=== PATIENT | male | born 1950 | race Caucasian/White ===

== ENCOUNTER 2022-09-09 22:47 | Observation (INO) ==
--- NOTE | 2022-09-09 23:21 | Emergency Department Note ---
History of Present Illness General Chief complaint: Urinary Symptoms Stated complaint: UTI/TROUBLE URINATING Time Seen by Provider: 09/09/22 22:55 History of Present Illness 71-year-old male presents emergency department via EMS reportedly states that he has been feeling feverish and fatigued for the past few days now. Patient went to [facility] urgent care and had a full evaluation for fatigue. Patient sta alyssa that he is Lyme negative he did have evaluation with blood work and had an elevated white blood cell count of 13.54 his urinalysis showed white blood cells and bacteria. Patient was placed on Macrobid. Patient had normal electrolytes. The patient continued to have fevers and generalized weakness. Patient had seen his primary care physician today [facility] is [facility] a dose of [facility]. Patient this evening felt worse. Patient states he is having pressure and inability to urinate at times with decreased urine output. Patient has no prior history of kidney stones however on his urinalysis he did have calcium oxalate crystals present. Patient continues to complain of general malaise and fever. Home Medications Medication Instructions Recorded Confirmed Type cholecalciferol (vitamin D3) 25 0 mcg PO DAILY 09/10/22 09/10/22 History mcg (1,000 unit) capsule (Vitamin D3) cyanocobalamin (vitamin B-12) 500 0 mcg PO DAILY 09/10/22 09/10/22 History mcg tablet (Vitamin B-12) docusate sodium 100 mg capsule 100 mg PO DAILY 09/10/22 09/10/22 History (Colace) doxycycline hyclate 50 mg capsule 50 mg PO DAILY PRN FLARE UPS 09/10/22 09/10/22 History ferrous sulfate 325 mg (65 mg 325 mg PO DAILY 09/10/22 09/10/22 History iron) tablet (iron) multivitamin 1 tab PO DAILY 09/10/22 09/10/22 History nitrofurantoin 100 mg PO BID 09/10/22 09/10/22 History monohydrate/macrocrystals 100 mg capsule Allergies Allergy/AdvReac Type Severity Reaction Status Date / Time bee venom protein (honey bee) Allergy Severe ANAPHYLAXIS Verified 09/10/22 00:20 Penicillins Allergy Severe ANAPHYLAXIS Verified 09/10/22 00:20 pollen extracts Allergy Mild SEASONAL Verified 09/10/22 00:20 ALLERGIES BLUE CHEESE Allergy Severe ANAPHYLAXIS Uncoded 09/10/22 00:20 Past Med/Surg History Immunizations: Past medical history denies, past surgical history left inguinal hernia repair, social history lives alone Review of Systems A total of 10 systems reviewed and were otherwise negative Constitutional: + fever, + malaise and + weakness Respiratory: no cough Cardiovascular: no chest pain Gastrointestinal: no abdominal pain Genitourinary (Male): + urinary frequency and + urinary hesitancy Physical Exam GENERAL: Patient is awake alert in no acute distress patient is resting comfortably and showing no signs of anxiety EYES: The conjunctivae are clear. The pupils are round and reactive. EARS, NOSE, MOUTH AND THROAT: The nose is without any evidence of any deformity. Mucous membranes are moist. Tongue is midline. NECK: The neck is nontender and supple. RESPIRATORY: Normal respiratory effort is noted there is no evidence of wheezing rhonchi or rales CARDIOVASCULAR: Regular rate and rhythm noted there no murmurs rubs or gallops n ormal S1 normal S2. GASTROINTESTINAL: The abdomen is soft. Abdomen is nontender. There is no rebou nd rigidity or guarding BACK: Full range of motion MUSCULOSKELETAL/EXTREMITIES: There is no evidence of gross deformity full range of motion is noted in the hips and shoulders. SKIN: There is no obvious evidence of any rash. There are no petechiae, pallor or cyanosis noted. NEUROLOGIC: Patient is awake alert and oriented x3 strength is symmetric Course Reevaluation(s) Reevaluation #1: Patient was started on IV fluids. Patient states he is continuously feeling weak. Patient states he cannot urinate. Patient has no abdominal pain. Time: 01:26 Consultations Consultation #1: Case was discussed with the [facility] hospitalist for admission Time: : Administered Medications Discontinued Medications Sodium Chloride (Nss 1000ml) 1,000 mls @ 999 mls/hr IV .Q1H1M BALTAZAR Stop: 09/10/22 00:30 Last Admin: 09/10/22 01:17 Dose: 999 mls/hr Documented By: ARTIS Medical Decision Making Medical Records Attestation: I reviewed the patient's medical records. Home Medications Current Medication List: was personally reviewed by me Laboratory Data Attestation: I reviewed the patient's lab results. Patient has an elevated white blood cell count has hyponatremia 09/10/22 00:00 09/10/22 00:00 Lab Results 09/09/22 09/10/22 09/10/22 Range/Units 23:10 00:00 00:00 WBC 12.99 H (4.8-10.8) K/ul RBC 4.20 L (4.70-6.10) M/uL Hgb 13.1 L (14.0-18.0) g/dl Hct 38.2 L (42.0-52.0) % MCV 91.0 (80.0-100.0) fL MCH 31.2 (25.0-34.0) pg MCHC 34.3 (32.0-36.0) g/dL RDW Std Deviation 46.6 H (36.4-46.3) fL RDW Coeff of Loyd 13.9 (11.5-14.5) % Plt Count 208 (130-400) K/uL MPV 10.2 (9.4-12.4) fL Immature Gran % (Auto) 0.5 % Neut % (Auto) 79.9 % Lymph % (Auto) 5.9 % [place] % (Auto) 13.5 % Eos % (Auto) 0.0 % Baso % (Auto) 0.2 % Neut # (Auto) 10.38 H (1.40-6.50) K/uL Lymph # (Auto) 0.77 L (1.2-3.4) K/uL [place] # (Auto) 1.75 H (0.11-0.59) K/uL Eos # (Auto) 0.00 (0-0.50) K/uL Baso # (Auto) 0.03 (0-0.2) K/uL Immature Gran # (Auto) 0.06 (0.01-0.20) K/uL Sodium 129 L (136-145) mmol/L Potassium 4.0 (3.5-5.1) mmol/L Chloride 93 L (98-107) mmol/L Carbon Dioxide 27 (21-32) mmol/L Anion Gap 9 (3-11) BUN 12 (6-23) mg/dl Creatinine 0.62 (0.6-1.4) mg/dl Est Cr Clr Drug Dosing Not Reportable Est GFR ( Amer) 115.7 ml/min Est GFR (Non-Af Amer) 99.8 ml/min BUN/Creatinine Ratio 19.4 (10-20) Glucose 114 H (70-99(Fasting)) mg/dl Lactate (0.4-2.0) mmol/L Calcium 9.3 (8.6-10.3) mg/dl Magnesium 1.9 (1.7-2.4) mg/dl Total Bilirubin 0.4 (0.2-1.0) mg/dl Direct Bilirubin 0.1 (0-0.2) mg/dl AST 16 (13-39) U/L ALT 16 (7-52) U/L Alkaline Phosphatase 48 (34-104) U/L Total Protein 7.2 (6.0-8.3) gm/dl Albumin 4.2 (3.4-5.0) gm/dl Procalcitonin (0-0.5) ng/ml Urine Color Dark Yellow Urine Appearance Cloudy A (Clear) Urine pH 5.5 (4.5-7.5) Ur Specific [place] 1.025 (1.000-1.030) Urine Protein 2+ H (Negative) Urine Glucose (UA) Negative (Negative) Urine Ketones Trace H (Negative) Urine Blood Trace H (Negative) Urine Nitrite Negative (Negative) Urine Bilirubin Negative (Negative) Urine Urobilinogen Negative (Negative) Ur Leukocyte Esterase Trace H (Negative) Urine WBC (Auto) 10-30 H (0-5) /hpf Urine RBC (Auto) 10-30 H (0-4) /hpf U Hyaline Cast (Auto) 5-10 H (0-5) /lpf U Epithel Cells (Auto) 20-30 H (0-5) /lpf Urine Bacteria (Auto) Negative (Negative) 09/10/22 09/10/22 Range/Units 00:00 00:00 WBC (4.8-10.8) K/ul RBC (4.70-6.10) M/uL Hgb (14.0-18.0) g/dl Hct (42.0-52.0) % MCV (80.0-100.0) fL MCH (25.0-34.0) pg MCHC (32.0-36.0) g/dL RDW Std Deviation (36.4-46.3) fL RDW Coeff of Loyd (11.5-14.5) % Plt Count (130-400) K/uL MPV (9.4-12.4) fL Immature Gran % (Auto) % Neut % (Auto) % Lymph % (Auto) % [place] % (Auto) % Eos % (Auto) % Baso % (Auto) % Neut # (Auto) (1.40-6.50) K/uL Lymph # (Auto) (1.2-3.4) K/uL [place] # (Auto) (0.11-0.59) K/uL Eos # (Auto) (0-0.50) K/uL Baso # (Auto) (0-0.2) K/uL Immature Gran # (Auto) (0.01-0.20) K/uL Sodium (136-145) mmol/L Potassium (3.5-5.1) mmol/L Chloride (98-107) mmol/L Carbon Dioxide (21-32) mmol/L Anion Gap (3-11) BUN (6-23) mg/dl Creatinine (0.6-1.4) mg/dl Est Cr Clr Drug Dosing Est GFR ( Amer) ml/min Est GFR (Non-Af Amer) ml/min BUN/Creatinine Ratio (10-20) Glucose (70-99(Fasting)) mg/dl Lactate 0.6 (0.4-2.0) mmol/L Calcium (8.6-10.3) mg/dl Magnesium (1.7-2.4) mg/dl Total Bilirubin (0.2-1.0) mg/dl Direct Bilirubin (0-0.2) mg/dl AST (13-39) U/L ALT (7-52) U/L Alkaline Phosphatase (34-104) U/L Total Protein (6.0-8.3) gm/dl Albumin (3.4-5.0) gm/dl Procalcitonin 0.16 (0-0.5) ng/ml Urine Color Urine Appearance (Clear) Urine pH (4.5-7.5) Ur Specific [place] (1.000-1.030) Urine Protein (Negative) Urine Glucose (UA) (Negative) Urine Ketones (Negative) Urine Blood (Negative) Urine Nitrite (Negative) Urine Bilirubin (Negative) Urine Urobilinogen (Negative) Ur Leukocyte Esterase (Negative) Urine WBC (Auto) (0-5) /hpf Urine RBC (Auto) (0-4) /hpf U Hyaline Cast (Auto) (0-5) /lpf U Epithel Cells (Auto) (0-5) /lpf Urine Bacteria (Auto) (Negative) Imaging Data Attestation: I personally reviewed and interpreted this imaging study as follows: My Impression: Chest x-ray interpreted by me negative for infiltrate Radiologist's Impression: Abdomen/Pelvis CT 09/09/22 23:17 Exam(s): CT ABDOMEN + PELVIS Without Contrast EXAM: CT Abdomen and Pelvis Without Intravenous Contrast CLINICAL HISTORY: Reason for exam: flank pain. TECHNIQUE: Axial computed tomography images of the abdomen and pelvis without intravenous contrast. CTDI is 13.48 mGy and DLP is 604.83 mGy-cm. Automated exposure control was utilized for the study. A dose lowering technique was utilized adhering to the principles of ALARA. COMPARISON: No relevant prior studies available. FINDINGS: Lung bases: There is left lung atelectasis. ABDOMEN: Liver: Unremarkable. Gallbladder and bile ducts: Unremarkable. No calcified stones. No ductal dilation. Pancreas: Unremarkable. No ductal dilation. Spleen: There are multiple small splenic granulomas. Adrenals: Unremarkable. No mass. Kidneys and ureters: There is a punctate nonobstructing right-sided intrarenal calculus. Stomach and bowel: There is moderate gaseous distention of colon small bowel loops without a focal point of obstruction identified. No mucosal thickening. PELVIS: Appendix: No findings to suggest acute appendicitis. Bladder: Unremarkable. No stones. Reproductive: The prostate is enlarged. ABDOMEN and PELVIS: Intraperitoneal space: Unremarkable. No free air. No significant fluid collection. Bones/joints: There are degenerative changes of the thoracolumbar spine. No acute fracture. No dislocation. Soft tissues: There are changes of prior left inguinal hernia repair. Vasculature: Unremarkable. No abdominal aortic aneurysm. Lymph nodes: Unremarkable. No enlarged lymph nodes. IMPRESSION: 1. Moderate distention of large and small bowel loops without a focal point of obstruction seen. 2. Nonobstructing right-sided intrarenal calculus. No ureteral calculi or hydronephrosis. Electronically signed by: Mik Gill MD 09/10/22 00:54 AM ECG Data Attestation: I personally reviewed and interpreted this ECG as follows: Additional Comments: EKG interpreted by me normal sinus rhythm rate of 90 normal intervals normal axis no obvious ST segment elevation or depression Telemetry was ordered by me, interpreted as sinus rhythm rate of 90 MDM Narrative Medical decision making differential diagnosis includes urinary tract infection, pyelonephritis, ureterolithiasis, viral syndrome, electrolyte abnormality, dehydration Plan is to check labs, sepsis labs, urinalysis, CT Patient was started on IV fluids, patient is hyponatremic, patient I do not believe is septic, patient's urinalysis is contaminated, will admit the patient for further treatment due to generalized weakness and dehydration Impression & Plan Weakness, Acute hyponatremia Discharge Plan Visit Data Chief Complaint: Urinary Symptoms Stated Complaint: UTI/TROUBLE URINATING ED Provider: Timmy Mathur Discharge Problem: Weakness, Acute hyponatremia Patient Disposition: Admitted As Inpatient Forms Stand Alone Forms: My [facility] Prescriptions Prescriptions: No Action multivitamin Tablet 1 tab PO DAILY doxycycline hyclate 50 mg capsule 50 mg PO DAILY PRN (Reason: FLARE UPS) cyanocobalamin (vitamin B-12) [Vitamin B-12] 500 mcg Tablet 0 mcg PO DAILY Rx Instructions: PT UNSURE OF STRENGTH ferrous sulfate [iron] 325 mg (65 mg iron) Tablet 325 mg PO DAILY docusate sodium [Colace] 100 mg Capsule 100 mg PO DAILY cholecalciferol (vitamin D3) [Vitamin D3] 25 mcg (1,000 unit) Capsule 0 mcg PO DAILY Rx Instructions: PT UNSURE OF STRENGTH nitrofurantoin monohyd/m-cryst 100 mg capsule 100 mg PO BID Rx Instructions: STARTED 09/08/22 FOR 10 DAYS Referrals Referrals: Thomas Vargas DO [Physician] -
[2022-09-09] MEDS ORDERED: SODIUM CHLORIDE 0.9% 1000ML 1,000 ML IV SCH (23:30)
[2022-09-09 23:37] LABS: Appearance Urine Cloudy (Clear); Bacteria Urine Automated Negative (Negative); Bilirubin Urine Negative (Negative); Blood Urine Trace (Negative); Color Urine Dark Yellow; Epithelial Cell Urine Auto 20-30 /lpf (0-5); Glucose Urine UA Negative (Negative); Ketones Urine Trace (Negative); Leukocyte Esterase Urine Trace (Negative); Nitrite Urine Negative (Negative); Protein Urine 2+ (Negative); Specific Gravity Urine 1.025 (1.000-1.030); Urobilinogen Urine Negative (Negative); pH Urine 5.5 (4.5-7.5)
[2022-09-10 00:19] LABS: Basophils # (auto) 0.03 K/uL (0-0.2); Basophils % (auto) 0.2 %; Hematocrit (blood only) 38.2 % (42.0-52.0); Hemoglobin 13.1 g/dl (14.0-18.0); Immature Granulocytes # (auto) 0.06 K/uL (0.01-0.20); Immature Granulocytes % (auto) 0.5 %; Lymphocytes # (auto) 0.77 K/uL (1.2-3.4); Lymphocytes % (auto) 5.9 %; Mean Corpuscular Hemoglobin 31.2 pg (25.0-34.0); Mean Corpuscular Hgb Conc 34.3 g/dL (32.0-36.0); Mean Platelet Volume 10.2 fL (9.4-12.4); Monocytes # (auto) 1.75 K/uL (0.11-0.59); Monocytes % (auto) 13.5 %; Neutrophils # (auto) 10.38 K/uL (1.40-6.50); Neutrophils % (auto) 79.9 %; Platelet Count 208 K/uL (130-400); RDW Coefficient of Variation 13.9 % (11.5-14.5); RDW Standard Deviation 46.6 fL (36.4-46.3); White Blood Count 12.99 K/ul (4.8-10.8)
[2022-09-10 00:36] LABS: Alanine Aminotransferase 16 U/L (7-52); Albumin Level 4.2 gm/dl (3.4-5.0); Alkaline Phosphatase 48 U/L (34-104); Anion Gap 9 (3-11); Aspartate Aminotransferase 16 U/L (13-39); BUN Creatinine Ratio 19.4 (10-20); Bilirubin Direct 0.1 mg/dl (0-0.2); Bilirubin,Total 0.4 mg/dl (0.2-1.0); Blood Urea Nitrogen 12 mg/dl (6-23); Calcium 9.3 mg/dl (8.6-10.3); Carbon Dioxide 27 mmol/L (21-32); Chloride 93 mmol/L (98-107); Est GFR (African American) 115.7 ml/min; Est GFR (Non-African American) 99.8 ml/min; Glucose 114 mg/dl (70-99(Fasting)); Magnesium 1.9 mg/dl (1.7-2.4); Sodium 129 mmol/L (136-145); Total Protein 7.2 gm/dl (6.0-8.3)
--- NOTE | 2022-09-10 00:55 | CT Scan Report ---
Exam(s): CT ABDOMEN + PELVIS Without Contrast EXAM: CT Abdomen and Pelvis Without Intravenous Contrast CLINICAL HISTORY: Reason for exam: flank pain. TECHNIQUE: Axial computed tomography images of the abdomen and pelvis without intravenous contrast. CTDI is 13.48 mGy and DLP is 604.83 mGy-cm. Automated exposure control was utilized for the study. A dose lowering technique was utilized adhering to the principles of ALARA. COMPARISON: No relevant prior studies available. FINDINGS: Lung bases: There is left lung atelectasis. ABDOMEN: Liver: Unremarkable. Gallbladder and bile ducts: Unremarkable. No calcified stones. No ductal dilation. Pancreas: Unremarkable. No ductal dilation. Spleen: There are multiple small splenic granulomas. Adrenals: Unremarkable. No mass. Kidneys and ureters: There is a punctate nonobstructing right-sided intrarenal calculus. Stomach and bowel: There is moderate gaseous distention of colon small bowel loops without a focal point of obstruction identified. No mucosal thickening. PELVIS: Appendix: No findings to suggest acute appendicitis. Bladder: Unremarkable. No stones. Reproductive: The prostate is enlarged. ABDOMEN and PELVIS: Intraperitoneal space: Unremarkable. No free air. No significant fluid collection. Bones/joints: There are degenerative changes of the thoracolumbar spine. No acute fracture. No dislocation. Soft tissues: There are changes of prior left inguinal hernia repair. Vasculature: Unremarkable. No abdominal aortic aneurysm. Lymph nodes: Unremarkable. No enlarged lymph nodes. IMPRESSION: 1. Moderate distention of large and small bowel loops without a focal point of obstruction seen. 2. Nonobstructing right-sided intrarenal calculus. No ureteral calculi or hydronephrosis. Electronically signed by: Mik Gill MD 09/10/22 00:54 AM
--- NOTE | 2022-09-10 02:41 | History & Physical Report ---
Date of Service September 10, 2022 Assessment & Plan (1) Complicated UTI (urinary tract infection): Plan: hx BPH as per records (hx unsuccessful outpatient tamsulosin trial as per records) Failed outpatient treatment No sepsis for now Hyponatremia secondary to illness Hyperglycemia rule out DM chronic anemia, hemoglobin at baseline past alcohol abuse GMF Urine CS, Cefepime Straight cath as needed bladder residual greater than 500 cc Urology consult Re: Urinary retention (Patient admits to hesitation in relation to chronic medication intake.) Careful correction of sodium hyponatremia work-up Check hemoglobin A1c DVT prophylaxis with Lovenox subcu Full code Text document was generated using [employer] voice recognition software. It may contain grammatical or spelling errors. Kindly contact undersigned for clarification of any documentation item in question. History of Present Illness Chief Complaint: Dysuria, urinary retention Primary Care Provider: Myrtle Soliz MD History obtained from patient and records. Medical history significant for BPH, history of PSA elevation, chronic anemia (baseline hemoglobin 11-12 ), past alcohol abuse. Patient not feeling well the last 4 days. Low-grade temperature and pulse elevation at home. Denies chest pain, shortness of breath, cough symptoms. Trouble concentrating. No recollection of recent tick bites. Patient completed COVID-19 vaccination. Patient seen at urgent care center. Outpatient Lyme screen noted to be negative. UA showed WBC. Patient later noted dysuria symptoms and urinary retention. Urologist prescribed Macrodantin course. Minimal improvement despite compliance with medications. Poor appetite, nausea symptoms without abdominal pain. Patient seen at weekend clinic yesterday. Macrodantin switched to ciprofloxacin for possible prostatitis. Patient consulted ER for worsening symptoms despite 1 dose of Cipro at home. Bladder residual noted to be greater than 500 cc at the ER. Medical History as above Surgical History : Laparoscopic hernia repair, laser trabeculoplasty, nasal bone fracture reduction, pilonidal cyst removal Family History : Breast cancer, colon cancer, heart disease, Parkinson's disease, stroke Personal/Social history : Non-smoker, past alcohol abuse, retired theater professional Allergies Allergy/AdvReac Type Severity Reaction Status Date / Time bee venom protein (honey bee) Allergy Severe ANAPHYLAXIS Verified 09/10/22 00:20 Penicillins Allergy Severe ANAPHYLAXIS Verified 09/10/22 00:20 pollen extracts Allergy Mild SEASONAL Verified 09/10/22 00:20 ALLERGIES BLUE CHEESE Allergy Severe ANAPHYLAXIS Uncoded 09/10/22 00:20 Home Medications Medication Instructions Recorded Confirmed Type cholecalciferol (vitamin D3) 25 0 mcg PO DAILY 09/10/22 09/10/22 History mcg (1,000 unit) capsule (Vitamin D3) cyanocobalamin (vitamin B-12) 500 0 mcg PO DAILY 09/10/22 09/10/22 History mcg tablet (Vitamin B-12) docusate sodium 100 mg capsule 100 mg PO DAILY 09/10/22 09/10/22 History (Colace) doxycycline hyclate 50 mg capsule 50 mg PO DAILY PRN FLARE UPS 09/10/22 09/10/22 History ferrous sulfate 325 mg (65 mg 325 mg PO DAILY 09/10/22 09/10/22 History iron) tablet (iron) multivitamin 1 tab PO DAILY 09/10/22 09/10/22 History nitrofurantoin 100 mg PO BID 09/10/22 09/10/22 History monohydrate/macrocrystals 100 mg capsule Past Med/Surg History Social History Smoking Status: Never smoker Hx Alcohol Use: No Hx Substance Use: No Preferred Language: Austrian Communication Ability: Effective Manager Client Support Required: No Beliefs That Will Affect Care: None Current Living Situation: Alone Current Living Situation Comment: lives home alone Feels Safe at Home: Yes Safety Concerns: Feels Safe At This Time Assistive Devices: Glasses Review of Systems Review of Systems: As per HPI, all other systems reviewed and negative Physical Exam Physical Exam: GENERAL: Comfortable, slightly anxious, no respiratory distress SKIN: Normal color, warm HEENT: [place] palpebral conjunctivae, no ptosis, dry buccal mucosa NECK : Supple, no tenderness CHEST : CTA, no tenderness HEART : RRR, no obvious murmurs ABDOMEN: Some distention, nontender EXTREMITIES : No LE swelling/tenderness, no other conspicuous deformities noted NEUROLOGIC : Coherent, no facial asymmetry, no other gross focality Results & Data Results & Data Vital Signs (Past 12 Hours) Vital Signs Pulse Resp BP Pulse Ox O2 Del Method 09/10/22 01:36 86 18 144/78 H 99 Room Air 09/10/22 01:34 99 Room Air Laboratory Results Laboratory Results WBC 12.99 K/ul (4.8-10.8) H 09/10/22 00:00 RBC 4.20 M/uL (4.70-6.10) L 09/10/22 00:00 Hgb 13.1 g/dl (14.0-18.0) L 09/10/22 00:00 Hct 38.2 % (42.0-52.0) L 09/10/22 00:00 MCV 91.0 fL (80.0-100.0) 09/10/22 00:00 MCH 31.2 pg (25.0-34.0) 09/10/22 00:00 MCHC 34.3 g/dL (32.0-36.0) 09/10/22 00:00 RDW Std Deviation 46.6 fL (36.4-46.3) H 09/10/22 00:00 RDW Coeff of Loyd 13.9 % (11.5-14.5) 09/10/22 00:00 Plt Count 208 K/uL (130-400) 09/10/22 00:00 MPV 10.2 fL (9.4-12.4) 09/10/22 00:00 Immature Gran % (Auto) 0.5 % 09/10/22 00:00 Neut % (Auto) 79.9 % 09/10/22 00:00 Lymph % (Auto) 5.9 % 09/10/22 00:00 [place] % (Auto) 13.5 % 09/10/22 00:00 Eos % (Auto) 0.0 % 09/10/22 00:00 Baso % (Auto) 0.2 % 09/10/22 00:00 Neut # (Auto) 10.38 K/uL (1.40-6.50) H 09/10/22 00:00 Lymph # (Auto) 0.77 K/uL (1.2-3.4) L 09/10/22 00:00 [place] # (Auto) 1.75 K/uL (0.11-0.59) H 09/10/22 00:00 Eos # (Auto) 0.00 K/uL (0-0.50) 09/10/22 00:00 Baso # (Auto) 0.03 K/uL (0-0.2) 09/10/22 00:00 Immature Gran # (Auto) 0.06 K/uL (0.01-0.20) 09/10/22 00:00 Sodium 129 mmol/L (136-145) L 09/10/22 00:00 Potassium 4.0 mmol/L (3.5-5.1) 09/10/22 00:00 Chloride 93 mmol/L (98-107) L 09/10/22 00:00 Carbon Dioxide 27 mmol/L (21-32) 09/10/22 00:00 Anion Gap 9 (3-11) 09/10/22 00:00 BUN 12 mg/dl (6-23) 09/10/22 00:00 Creatinine 0.62 mg/dl (0.6-1.4) 09/10/22 00:00 Est Cr Clr Drug Dosing Not Reportable 09/10/22 00:00 Est GFR ( Amer) 115.7 ml/min 09/10/22 00:00 Est GFR (Non-Af Amer) 99.8 ml/min 09/10/22 00:00 BUN/Creatinine Ratio 19.4 (10-20) 09/10/22 00:00 Glucose 114 mg/dl (70-99(Fasting)) H 09/10/22 00:00 Osmolality 269 mOsm/kg (280-300) L 09/10/22 00:00 Lactate 0.6 mmol/L (0.4-2.0) 09/10/22 00:00 Calcium 9.3 mg/dl (8.6-10.3) 09/10/22 00:00 Magnesium 1.9 mg/dl (1.7-2.4) 09/10/22 00:00 Total Bilirubin 0.4 mg/dl (0.2-1.0) 09/10/22 00:00 Direct Bilirubin 0.1 mg/dl (0-0.2) 09/10/22 00:00 AST 16 U/L (13-39) 09/10/22 00:00 ALT 16 U/L (7-52) 09/10/22 00:00 Alkaline Phosphatase 48 U/L (34-104) 09/10/22 00:00 Total Protein 7.2 gm/dl (6.0-8.3) 09/10/22 00:00 Albumin 4.2 gm/dl (3.4-5.0) 09/10/22 00:00 Procalcitonin 0.16 ng/ml (0-0.5) 09/10/22 00:00 TSH 2.634 uIu/ml (0.300-4.500) 09/10/22 00:00 Urine Color Dark Yellow 09/09/22 23:10 Urine Appearance Cloudy (Clear) A 09/09/22 23:10 Urine pH 5.5 (4.5-7.5) 09/09/22 23:10 Ur Specific [place] 1.025 (1.000-1.030) 09/09/22 23:10 Urine Protein 2+ (Negative) H 09/09/22 23:10 Urine Glucose (UA) Negative (Negative) 09/09/22 23:10 Urine Ketones Trace (Negative) H 09/09/22 23:10 Urine Blood Trace (Negative) H 09/09/22 23:10 Urine Nitrite Negative (Negative) 09/09/22 23:10 Urine Bilirubin Negative (Negative) 09/09/22 23:10 Urine Urobilinogen Negative (Negative) 09/09/22 23:10 Ur Leukocyte Esterase Trace (Negative) H 09/09/22 23:10 Urine WBC (Auto) 10-30 /hpf (0-5) H 09/09/22 23:10 Urine RBC (Auto) 10-30 /hpf (0-4) H 09/09/22 23:10 U Hyaline Cast (Auto) 5-10 /lpf (0-5) H 09/09/22 23:10 U Epithel Cells (Auto) 20-30 /lpf (0-5) H 09/09/22 23:10 Urine Bacteria (Auto) Negative (Negative) 09/09/22 23:10 SARS-CoV-2, RNA, NAAT NEGATIVE (NEGATIVE) 09/10/22 01:29 Impressions Abdomen/Pelvis CT 09/09/22 23:17 Exam(s): CT ABDOMEN + PELVIS Without Contrast EXAM: CT Abdomen and Pelvis Without Intravenous Contrast CLINICAL HISTORY: Reason for exam: flank pain. TECHNIQUE: Axial computed tomography images of the abdomen and pelvis without intravenous contrast. CTDI is 13.48 mGy and DLP is 604.83 mGy-cm. Automated exposure control was utilized for the study. A dose lowering technique was utilized adhering to the principles of ALARA. COMPARISON: No relevant prior studies available. FINDINGS: Lung bases: There is left lung atelectasis. ABDOMEN: Liver: Unremarkable. Gallbladder and bile ducts: Unremarkable. No calcified stones. No ductal dilation. Pancreas: Unremarkable. No ductal dilation. Spleen: There are multiple small splenic granulomas. Adrenals: Unremarkable. No mass. Kidneys and ureters: There is a punctate nonobstructing right-sided intrarenal calculus. Stomach and bowel: There is moderate gaseous distention of colon small bowel loops without a focal point of obstruction identified. No mucosal thickening. PELVIS: Appendix: No findings to suggest acute appendicitis. Bladder: Unremarkable. No stones. Reproductive: The prostate is enlarged. ABDOMEN and PELVIS: Intraperitoneal space: Unremarkable. No free air. No significant fluid collection. Bones/joints: There are degenerative changes of the thoracolumbar spine. No acute fracture. No dislocation. Soft tissues: There are changes of prior left inguinal hernia repair. Vasculature: Unremarkable. No abdominal aortic aneurysm. Lymph nodes: Unremarkable. No enlarged lymph nodes. IMPRESSION: 1. Moderate distention of large and small bowel loops without a focal point of obstruction seen. 2. Nonobstructing right-sided intrarenal calculus. No ureteral calculi or hydronephrosis. Electronically signed by: Mik Gill MD 09/10/22 00:54 AM Diagnostic Findings Chest x-ray as per my interpretation : No congestion
[2022-09-10] MEDS ORDERED: PROMETHAZINE HCL 6.25 MG in SODIUM CHLORIDE 0.9% 50 ML IV PRN (02:43)
[2022-09-10] MEDS ORDERED: LIDOCAINE 2% JELLY 5 ML TUBE EXT ONE ×2 (03:03→03:04)
[2022-09-10] MEDS: ACETAMINOPHEN 325 MG TAB PO PRN ×3 (03:49→23:13)
[2022-09-10] MEDS: CEFEPIME 2,000 MG/20 ML VIAL ONE ×2 (03:49→04:03)
[2022-09-10] MEDS ORDERED: Patient's HEIGHT &/or WEIGHT Needed SCH (04:15)
[2022-09-10] MEDS: LORazepam 0.5 MG TAB PO PRN ×2 (04:37→22:02)
[2022-09-10 06:30] LABS: Basophils # (auto) 0.03 K/uL (0-0.2); Basophils % (auto) 0.3 %; Eosinophils # (auto) 0.01 K/uL (0-0.50); Eosinophils % (auto) 0.1 %; Hematocrit (blood only) 33.2 % (42.0-52.0); Hemoglobin 11.4 g/dl (14.0-18.0); Immature Granulocytes # (auto) 0.03 K/uL (0.01-0.20); Immature Granulocytes % (auto) 0.3 %; Lymphocytes # (auto) 0.71 K/uL (1.2-3.4); Lymphocytes % (auto) 6.4 %; Mean Corpuscular Hemoglobin 30.9 pg (25.0-34.0); Mean Corpuscular Hgb Conc 34.3 g/dL (32.0-36.0); Mean Platelet Volume 10.5 fL (9.4-12.4); Monocytes # (auto) 1.66 K/uL (0.11-0.59); Monocytes % (auto) 14.9 %; Neutrophils # (auto) 8.71 K/uL (1.40-6.50); Platelet Count 187 K/uL (130-400); RDW Coefficient of Variation 13.7 % (11.5-14.5); RDW Standard Deviation 45.5 fL (36.4-46.3); Red Blood Count 3.69 M/uL (4.70-6.10); White Blood Count 11.15 K/ul (4.8-10.8)
[2022-09-10 06:32] LABS: BUN Creatinine Ratio 19.6 (10-20); Calcium 8.5 mg/dl (8.6-10.3); Creatinine Clr Calc Pharmacy 135.3 ml/min; Est GFR (African American) 125.3 ml/min; Est GFR (Non-African American) 108.1 ml/min; Potassium 3.8 mmol/L (3.5-5.1)
[2022-09-10] MEDS ORDERED: SODIUM CHLORIDE 0.9% 1000ML 1,000 ML IV ONE (07:08)
[2022-09-10] MEDS: MULTIVITAMIN TAB PO SCH (08:41)
[2022-09-10] MEDS: DOCUSATE SODIUM 100 MG CAP PO SCH (08:41)
[2022-09-10] MEDS: FERROUS SULFATE 325 MG TAB PO SCH (08:41)
[2022-09-10] MEDS: CYANOCOBALAMIN (B-12) 500 MCG TABLET PO SCH (08:45)
[2022-09-10] MEDS: ENOXAPARIN INJ 40 MG/0.4 ML SYR SQ SCH (08:54)
--- NOTE | 2022-09-10 09:32 | Urology Consultation ---
Date of Consultation September 10, 2022 Assessment & Plan (1) Urinary retention due to benign prostatic hyperplasia: Urinary retention secondary to a very large prostate Lengthy discussion today about options Continue Cipro x28 days Uncertain if this is true prostatitis but I believe treatment is warranted Cultures are pending Start tamsulosin and finasteride now We had a lengthy discussion about medications and he has been quite resistant to this in the past, however, I have encouraged him to start meds now even if this is only used for acute recovery PVR after his next void, if over 500 cc, please place indwelling catheter and leave it in place for an outpatient voiding trial I did discuss that if he is resistant to medications long-term, he should discuss surgical interventions with his primary urologist Dr. Pena PSAs between 5-6, appropriate for age and prostate size - no acute intervention indicated Please call if further issues during this hospitalization Extensive chart review and discussion today - 60+ min History of Present Illness Attending Physician: Jacob Hurtado MD History of Present Illness 71-year-old male presents secondary to questionable urinary retention and possible prostatitis He reports that for several days he has had increasing voiding dysfunction He was started on Macrodantin by his primary urologist Dr. Pena He has been quite resistant to taking BPH driven medications in the past despite some chronic voiding dysfunction He is not currently on tamsulosin or finasteride Despite starting Macrodantin he had worsening symptoms over the weekend and presented to the Sunday morning clinic through [facility] He was converted to ciprofloxacin but ultimately came to the emergency room because of inability to void He had a solitary straight cathed for 575 cc and no catheter was left in place He has had minimal voiding since that time He did have substantial relief after draining his bladder He was bladder scanned immediately prior to my arrival in the room for 317 cc and he has been unable to void He has no discomfort currently Creatinine 0.5 UA not definitively indicative of an infection although prostatitis could often be missed on a UA Leukocytosis of 11,000 CT personally reviewed and discussed Very large prostate with moderately distended bladder no hydronephrosis Allergies Allergy/AdvReac Type Severity Reaction Status Date / Time bee venom protein (honey bee) Allergy Severe ANAPHYLAXIS Verified 09/10/22 00:20 Penicillins Allergy Severe ANAPHYLAXIS Verified 09/10/22 00:20 pollen extracts Allergy Mild SEASONAL Verified 09/10/22 00:20 ALLERGIES BLUE CHEESE Allergy Severe ANAPHYLAXIS Uncoded 09/10/22 00:20 Home Medications Medication Instructions Recorded Confirmed Type cholecalciferol (vitamin D3) 25 0 mcg PO DAILY 09/10/22 09/10/22 History mcg (1,000 unit) capsule (Vitamin D3) cyanocobalamin (vitamin B-12) 500 0 mcg PO DAILY 09/10/22 09/10/22 History mcg tablet (Vitamin B-12) docusate sodium 100 mg capsule 100 mg PO DAILY 09/10/22 09/10/22 History (Colace) doxycycline hyclate 50 mg capsule 50 mg PO DAILY PRN FLARE UPS 09/10/22 09/10/22 History ferrous sulfate 325 mg (65 mg 325 mg PO DAILY 09/10/22 09/10/22 History iron) tablet (iron) multivitamin 1 tab PO DAILY 09/10/22 09/10/22 History nitrofurantoin 100 mg PO BID 09/10/22 09/10/22 History monohydrate/macrocrystals 100 mg capsule Patient History Social History Smoking Status: Never smoker Hx Alcohol Use: No Hx Substance Use: No Preferred Language: Czech Communication Ability: Effective Director Of Logistics Required: No Beliefs That Will Affect Care: None Current Living Situation: Alone Current Living Situation Comment: lives home alone Feels Safe at Home: Yes Safety Concerns: Feels Safe At This Time Assistive Devices: Glasses Review of Systems Constitutional: no fever, no chills and no fatigue Eyes: no worsening vision Ear, Nose, Mouth, Throat: no facial pain and no pain with swallowing Respiratory: no cough and no dyspnea Cardiovascular: no chest pain and no palpitations Gastrointestinal: no abdominal pain, no nausea and no vomiting Genitourinary: + as per Subjective / HPI, + dysuria, + urinary frequency and + urinary hesitancy Musculoskeletal: no back pain Integumentary: no rash and no urticaria Neurologic: no gait abnormality and no unsteadiness Psychiatric: no behavioral changes and no depression Endocrine: no fatigue Physical Exam Constitutional: well developed and well nourished Neck: neck nontender Respiratory: normal respiratory effort; no respiratory distress and does not use accessory muscles Cardiovascular: Rate/Rhythm: regular rate Vessels: radial pulses present Extremities: no edema Gastrointestinal (Abdomen): Inspection/Auscultation: abdomen normal to inspection Percussion/Palpation: abdomen soft; abdomen nontender and no guarding Musculoskeletal: Head/Neck/Chest: normocephalic and head atraumatic Extremities: extremities normal to inspection Skin: no rashes and no lesions Trauma: no evidence of skin trauma Neurologic: awake; not obtunded Speech / Cognition: normal speech Motor/Sensory: no tremor Psychiatric: Orientation: alert and oriented x 3 Genitourinary: no CVA tenderness Lymphatic: no lymphadenopathy Results & Data Vital Signs (Past 12 Hours) Vital Signs Temp Pulse Pulse Resp BP BP BP 09/10/22 07:29 36.8 C 77 16 127/70 09/10/22 04:10 36.7 C 87 16 147/73 H 09/10/22 03:36 78 16 134/88 09/10/22 03:00 85 14 135/76 09/10/22 01:36 86 18 144/78 H 09/10/22 01:34 Pulse Ox O2 Del Method 09/10/22 07:29 99 Room Air 09/10/22 04:10 100 Room Air 09/10/22 03:36 98 Room Air 09/10/22 03:00 09/10/22 01:36 99 Room Air 09/10/22 01:34 99 Room Air PG Care Time/CCT Total # of Minutes Spent Total Time Spent with Patient: Total time spent is greater than 50% in coordination of care (as documented) at patient's floor/unit and/or counseling patient: Coding Level of Care Code 10259 IN/OBS CONSULT LVL 4,60M Diagnoses Urinary retention due to benign prostatic hyperplasia N40.1; R33.8
--- NOTE | 2022-09-10 09:35 | XRay Report ---
XR chest 1V portable CLINICAL HISTORY: Sepsis TECHNIQUE: Single frontal radiograph of the chest was obtained. Comparison: None available at the time of this dictation. FINDINGS: No lines and tubes are seen. The cardiomediastinal silhouette is normal. The lungs are clear. No evid ence of pleural effusion or pneumothorax. IMPRESSION: No acute abnormalities and in particular no radiographic evidence of pneumonia. ACT 112: Negative or not required by law. Electronically signed by: Vineet Ocampo M.D. 09/10/2022 9:34 AM
[2022-09-10] MEDS ORDERED: TAMSULOSIN HCL 0.4 MG CAP PO ONE (09:36)
[2022-09-10] MEDS: FINASTERIDE 5 MG TAB PO SCH (10:56)
--- NOTE | 2022-09-10 11:17 | Electrocardiogram Report ---
Test Reason : Blood Pressure : / mmHG Vent. Rate : 090 BPM Atrial Rate : 090 BPM P-R Int : 162 ms QRS Dur : 090 ms QT Int : 330 ms P-R-T Axes : 067 040 047 degrees QTc Int : 403 ms Normal sinus rhythm Normal ECG No previous ECGs available Confirmed by Marty Crooks ([id number]) on 09/10/2022 11:16:56 AM Referred By: REFERRED SELF Confirmed By:Marty Crooks
--- NOTE | 2022-09-10 11:41 | Nephrology Consultation ---
Date of Consultation September 10, 2022 Assessment & Plan (1) Acute hyponatremia: Patient with hyponatremia due to SIADH. Sodium was 129 on admission and remained stable at this morning. Urine osmolality of 503 and urine sodium of 47. -Stop IV fluids -Fluid restriction 1.5 L -Urea 15 g twice daily (2) Urinary retention due to benign prostatic hyperplasia: Patient with urinary retention due to BPH. He has been seen by urology who recommended finasteride and Flomax. Patient is now agreeable to take the medications although he has been resistant to taking these medications in the p ast. (3) Complicated UTI (urinary tract infection): Patient with UTI on cefepime. Urine and blood cultures are pending. History of Present Illness Reason for Consultation: Hyponatremia Requesting Physician: Jacob Hurtado MD Attending Physician: Jacob Hurtado MD History of Present Illness This is 71-year-old male with history of BPH who follows with Dr. Pena but has been resistant to taking medications for BPH who presents with urinary frequency and dysuria. He was recently started on Macrodantin for possible UTI but his symptoms have been worsening. He was found to have urinary retention with postvoid residual of over 500 mL. He had a straight cath for 575 mL. Patient is also getting cefepime for his UTI. He reports improvement. This morning again he had a postvoid residual of 250 mL. He has also been getting normal saline at 60 mL/h. Admission sodium was 129 and remained stable at this morning. Urine osmolality was 503 and urine sodium of 47. Patient has normal renal function. He denies any shortness of breath, nausea or vomiting. He wears compression stockings for venous insufficiency. Allergies Allergy/AdvReac Type Severity Reaction Status Date / Time bee venom protein (honey bee) Allergy Severe ANAPHYLAXIS Verified 09/10/22 00:20 Penicillins Allergy Severe ANAPHYLAXIS Verified 09/10/22 00:20 pollen extracts Allergy Mild SEASONAL Verified 09/10/22 00:20 ALLERGIES BLUE CHEESE Allergy Severe ANAPHYLAXIS Uncoded 09/10/22 00:20 Home Medications Medication Instructions Recorded Confirmed Type cholecalciferol (vitamin D3) 25 0 mcg PO DAILY 09/10/22 09/10/22 History mcg (1,000 unit) capsule (Vitamin D3) cyanocobalamin (vitamin B-12) 500 0 mcg PO DAILY 09/10/22 09/10/22 History mcg tablet (Vitamin B-12) docusate sodium 100 mg capsule 100 mg PO DAILY 09/10/22 09/10/22 History (Colace) doxycycline hyclate 50 mg capsule 50 mg PO DAILY PRN FLARE UPS 09/10/22 09/10/22 History ferrous sulfate 325 mg (65 mg 325 mg PO DAILY 09/10/22 09/10/22 History iron) tablet (iron) multivitamin 1 tab PO DAILY 09/10/22 09/10/22 History nitrofurantoin 100 mg PO BID 09/10/22 09/10/22 History monohydrate/macrocrystals 100 mg capsule Patient History Social History Smoking Status: Never smoker Hx Alcohol Use: No Hx Substance Use: No Preferred Language: German Communication Ability: Effective Deicer Inspector Electric Required: No Beliefs That Will Affect Care: None Current Living Situation: Alone Current Living Situation Comment: lives home alone Feels Safe at Home: Yes Safety Concerns: Feels Safe At This Time Assistive Devices: Glasses Review of Systems Review of Systems: All other systems were reviewed and negative except as noted in HPI Physical Exam Physical Exam: General exam: Appears comfortable, no acute distress HEENT: Pupils are equal and reactive to light Neck: No JVD, neck is supple trachea is midline Respiratory system: Clear breath sounds bilaterally. Gastrointestinal: Abdomen is soft, non distended, non tender, bowel sounds are present CVS: Regular rate and rhythm. No murmurs, rubs or gallops Musculoskeletal: No joint or muscle tenderness Extremities: Non tender, no edema, peripheral pulses are present Neuro: Oriented, no tremors, no focal neurological deficits Skin: No rashes Results & Data Vital Signs (Past 12 Hours) Vital Signs Temp Pulse Pulse Resp BP BP BP 09/10/22 07:29 36.8 C 77 16 127/70 09/10/22 04:10 36.7 C 87 16 147/73 H 09/10/22 03:36 78 16 134/88 09/10/22 03:00 85 14 135/76 09/10/22 01:36 86 18 144/78 H 09/10/22 01:34 Pulse Ox O2 Del Method 09/10/22 07:29 99 Room Air 09/10/22 04:10 100 Room Air 09/10/22 03:36 98 Room Air 09/10/22 03:00 09/10/22 01:36 99 Room Air 09/10/22 01:34 99 Room Air Laboratory Results 09/10/22 05:24 09/10/22 09/10/22 09/10/22 00:00 00:00 05:24 WBC 12.99 H 11.15 H RBC 4.20 L 3.69 L MCV 91.0 90.0 MCH 31.2 30.9 MCHC 34.3 34.3 RDW Std Deviation 46.6 H 45.5 RDW Coeff of Loyd 13.9 13.7 Plt Count 208 187 MPV 10.2 10.5 Albumin 4.2
[2022-09-10] MEDS: UREA (UREA-NA) 15 GM PACK PO SCH ×2 (11:52→22:02)
[2022-09-10] MEDS: CEFEPIME 2,000 MG in SYRINGE 0 ML IV SCH ×3 (12:23→22:02)
[2022-09-10] MEDS ORDERED: Nursing to Pharmacy Communication SCH (14:15)
[2022-09-10] MEDS: TAMSULOSIN HCL 0.4 MG CAP PO SCH (22:02)
[2022-09-11] MEDS: CEFEPIME 2,000 MG in SYRINGE 0 ML IV SCH ×3 (06:27→22:11)
[2022-09-11] MEDS: ACETAMINOPHEN 325 MG TAB PO PRN (06:48)
--- NOTE | 2022-09-11 09:02 | Urology Progress Note ---
Date of Service September 11, 2022 Assessment & Plan (1) Urinary retention due to benign prostatic hyperplasia: (2) Benign localized prostatic hyperplasia with lower urinary tract symptoms (LUTS): Plan Urinary retention Surviving with tamsulosin and finasteride but not emptying completely I have offered him a catheter both yesterday and today and he has thus far refused Continue tamsulosin and finasteride for now Outpatient follow-up with Dr. Pena Please call with any further issues during this hospitalization Stable for discharge home from a standpoint -defer to nephrology regarding his hyponatremia Admission and Anticipated Discharge Date Admission Date: September 10, 2022 Subjective Seems to be doing okay this morning He reports that he had some improvement in his voiding pattern although he still voiding frequently and he still has hesitancy and a weak stream/incomplete emptying He has maintained adequate PVRs and he greatly prefers to avoid a catheter He started on tamsulosin and finasteride yesterday He has also been fluid restricted because of hyponatremia Very lengthy discussion today about long-term options for his management Given that he wishes to avoid a catheter I think that is reasonable, he should continue tamsulosin and finasteride indefinitely and needs follow-up with Dr. Pena as an outpatient to discuss long-term management Physical Exam Constitutional: well developed and well nourished Respiratory: no respiratory distress Cardiovascular: Extremities: no pedal edema Gastrointestinal (Abdomen): Inspection/Auscultation: abdomen normal to inspection Results & Data Vital Signs (Past 12 Hours) Vital Signs Temp Resp BP Pulse Ox O2 Del Method 09/11/22 08:00 36.7 C 18 127/70 98 Room Air PG Care Time/CCT Total # of Minutes Spent Total Time Spent with Patient: Total time spent is greater than 50% in coordination of care (as documented) at patient's floor/unit and/or counseling patient: Coding Level of Care Code 73869 SUB INP/OBS CARE 125MIN Diagnoses Urinary retention due to benign prostatic hyperplasia N40.1; R33.8 Benign localized prostatic hyperplasia with lower urinary tract symptoms (LUTS) N40.1
--- NOTE | 2022-09-11 09:22 | Nephrology Progress Note ---
Date of Service September 11, 2022 Assessment & Plan (1) Acute hyponatremia: Plan: Patient with hyponatremia due to SIADH. Sodium was 129 on admission and remained stable at this morning. Urine osmolality of 503 and urine sodium of 47. -Fluid restriction 1.5 L -Urea 15 g twice daily -If sodium is back to normal, we will stop the fluid restriction and urea (2) Urinary retention due to benign prostatic hyperplasia: Plan: Patient with urinary retention due to BPH. He has been seen by urology who re commended finasteride and Flomax. Patient reporting some improvement in urination. (3) Complicated UTI (urinary tract infection): Plan: Patient with UTI on cefepime. Urine and blood cultures are pending. Admission and Anticipated Discharge Date Admission Date: September 10, 2022 Subjective Seen in follow-up for hyponatremia and urinary retention. He feels better today. He is frustrated with the fluid restriction and does not like urea. Labs are pending this morning Review of Systems Review of Systems: All other systems were reviewed and negative except as noted in HPI Physical Exam Physical Exam: General exam: Appears comfortable, no acute distress HEENT: Pupils are equal and reactive to light Neck: No JVD, neck is supple trachea is midline Respiratory system: Clear breath sounds bilaterally. Gastrointestinal: Abdomen is soft, non distended, non tender, bowel sounds are present CVS: Regular rate and rhythm. No murmurs, rubs or gallops Musculoskeletal: No joint or muscle tenderness Extremities: Non tender, no edema, peripheral pulses are present Neuro: Oriented, no tremors, no focal neurological deficits Skin: No rashes Results & Data Vital Signs (Past 12 Hours) Vital Signs Temp Resp BP Pulse Ox O2 Del Method 09/11/22 08:00 36.7 C 18 127/70 98 Room Air Laboratory Results 09/10/22 05:24
[2022-09-11] MEDS: MULTIVITAMIN TAB PO SCH (09:28)
[2022-09-11] MEDS: UREA (UREA-NA) 15 GM PACK PO SCH ×2 (09:28→21:51)
[2022-09-11] MEDS: FERROUS SULFATE 325 MG TAB PO SCH (09:28)
[2022-09-11] MEDS: CYANOCOBALAMIN (B-12) 500 MCG TABLET PO SCH (09:29)
[2022-09-11] MEDS: ENOXAPARIN INJ 40 MG/0.4 ML SYR SQ SCH (09:29)
[2022-09-11] MEDS: FINASTERIDE 5 MG TAB PO SCH (09:29)
[2022-09-11] MEDS: DOCUSATE SODIUM 100 MG CAP PO SCH (09:29)
[2022-09-11 10:15] LABS: BUN Creatinine Ratio 28.3 (10-20); Calcium 8.8 mg/dl (8.6-10.3); Est GFR (African American) 117.2 ml/min; Est GFR (Non-African American) 101.2 ml/min; Potassium 3.7 mmol/L (3.5-5.1)
--- NOTE | 2022-09-11 12:44 | Hospitalist Progress Note ---
Date of Service September 11, 2022 Assessment & Plan (1) Complicated UTI (urinary tract infection): Plan: hx BPH as per records (hx unsuccessful outpatient tamsulosin trial as per records) Failed outpatient treatment No sepsis for now Urine CS, Cefepime Straight cath as needed Discussed placing Chen catheter - urology following Started flomax and finasteride - pt reports voiding is easier Urine cultx negative Blood cultx pending Possible proctitis, cont. abx Pt follows w/ Dr. Pena (urology) as outpt Hyponatremia - secondary to illness, siadh - Sodium was 129 on admission. Urine osmolality of 503 and urine sodium of 47. - Fluid restriction 1.5 L - Urea 15 g twice daily - Sodium 129 this AM Hyperglycemia rule out DM Check hemoglobin A1c Chronic anemia, hemoglobin at baseline Past alcohol abuse DVT prophylaxis with Lovenox subcu Full code Admission and Anticipated Discharge Date Admission Date: September 10, 2022 Subjective Patient seen in follow-up of urinary retention, possible UTI/possible prostatitis, hyponatremia Laying in bed in NAD Feels weak No chest pain, shortness of breath, n/v Able to void goes about every hour. he is not sure about catheter. Discussed w/ urology as well Review of Systems Review of Systems: All systems reviewed & are unremarkable except as noted in Subjective Physical Exam Physical Exam: GENERAL: Comfortable, slightly anxious, no respiratory distress HEENT: Likely palpebral conjunctivae, no ptosis NECK : Supple, no tenderness CHEST : CTA, no tenderness HEART : RRR, no obvious murmurs ABDOMEN: Soft, nontender EXTREMITIES : No LE swelling/tenderness, moves extremities SKIN: Normal color, warm NEUROLOGIC : Coherent, no facial asymmetry, speech fluent, moves extremities Results & Data Results & Data Vital Signs (Past 12 Hours) Vital Signs Temp Resp BP Pulse Ox O2 Del Method 09/11/22 08:00 36.7 C 18 127/70 98 Room Air Laboratory Results 09/11/22 Range/Units 09:44 Sodium 129 L (136-145) mmol/L Potassium 3.7 (3.5-5.1) mmol/L Chloride 97 L (98-107) mmol/L Carbon Dioxide 27 (21-32) mmol/L Anion Gap 5 (3-11) BUN 17 (6-23) mg/dl Creatinine 0.60 (0.6-1.4) mg/dl Est Cr Clr Drug Dosing 115.0 ml/min Est GFR ( Amer) 117.2 ml/min Est GFR (Non-Af Amer) 101.2 ml/min BUN/Creatinine Ratio 28.3 H (10-20) Glucose 127 H (70-99(Fasting)) mg/dl Calcium 8.8 (8.6-10.3) mg/dl Medications Administered Current Inpatient Medications Acetaminophen (Acetaminophen 325 Mg Tab) 650 mg PO Q6H PRN PRN Reason: Fever/pain Stop: 10/10/22 02:42 Last Admin: 09/11/22 06:48 Dose: 650 mg Cyanocobalamin (Cyanocobalamin (B-12) 500 Mcg Tablet) 500 mcg PO DAILY [facility] Stop: 10/10/22 08:59 Last Admin: 09/11/22 09:29 Dose: 500 mcg Docusate Sodium (Docusate Sodium 100 Mg Cap) 100 mg PO DAILY [facility] Stop: 10/10/22 08:59 Last Admin: 09/11/22 09:29 Dose: 100 mg Enoxaparin Sodium (Enoxaparin Inj 40 Mg/0.4 Ml Syr) 40 mg SQ QAM [facility] Stop: 10/10/22 08:59 Last Admin: 09/11/22 09:29 Dose: 40 mg Ferrous Sulfate (Ferrous Sulfate 325 Mg Tab) 325 mg PO DAILY [facility] Stop: 10/10/22 08:59 Last Admin: 09/11/22 09:28 Dose: 325 mg Finasteride (Finasteride 5 Mg Tab) 5 mg PO QAM [facility] Stop: 10/10/22 09:44 Last Admin: 09/11/22 09:29 Dose: 5 mg Promethazine HCl 6.25 mg/ (Sodium Chloride) 50.25 mls @ 201 mls/hr IV Q6H PRN PRN Reason: Nausea And Vomiting Stop: 10/10/22 02:42 Cefepime HCl 2,000 mg/ Syringe 20 mls @ 5 mls/min IV Q8H [facility]; Protocol Stop: 09/20/22 11:59 Last Admin: 09/11/22 06:27 Dose: 5 mls/min Lorazepam (Lorazepam 0.5 Mg Tab) 0.5 mg PO TID PRN PRN Reason: Anxiety Stop: 10/10/22 02:42 Last Admin: 09/10/22 22:02 Dose: 0.5 mg Multivitamins (Multivitamin Tab) 1 tab PO DAILY [facility] Stop: 10/10/22 08:59 Last Admin: 09/11/22 09:28 Dose: 1 tab Tamsulosin HCl (Tamsulosin Hcl 0.4 Mg Cap) 0.4 mg PO HS [facility] Stop: 10/10/22 20:59 Last Admin: 09/10/22 22:02 Dose: 0.4 mg Urea (Urea (Urea-Na) 15 Gm Pack) 15 gm PO BID [facility] Stop: 10/10/22 10:59 Last Admin: 09/11/22 09:28 Dose: 15 gm
[2022-09-11] MEDS ORDERED: IBUPROFEN 200 MG TAB PO STA (12:53)
[2022-09-11] MEDS: TAMSULOSIN HCL 0.4 MG CAP PO SCH (21:51)
[2022-09-11] MEDS: LORazepam 0.5 MG TAB PO PRN (23:04)
[2022-09-12] MEDS ORDERED: LORazepam 0.5 MG TAB PO STA (04:10)
[2022-09-12] MEDS: CEFEPIME 2,000 MG in SYRINGE 0 ML IV SCH ×3 (05:56→21:32)
[2022-09-12 08:10] LABS: Hematocrit (blood only) 32.9 % (42.0-52.0); Hemoglobin 11.5 g/dl (14.0-18.0); Mean Corpuscular Hemoglobin 31.1 pg (25.0-34.0); Mean Corpuscular Volume 88.9 fL (80.0-100.0); Mean Platelet Volume 10.3 fL (9.4-12.4); Platelet Count 224 K/uL (130-400); RDW Coefficient of Variation 13.8 % (11.5-14.5); White Blood Count 8.38 K/ul (4.8-10.8)
[2022-09-12 08:28] LABS: BUN Creatinine Ratio 35.7 (10-20); Calcium 8.7 mg/dl (8.6-10.3); Creatinine Clr Calc Pharmacy 123.2 ml/min; Est GFR (African American) 120.6 ml/min; Est GFR (Non-African American) 104.1 ml/min; Potassium 3.7 mmol/L (3.5-5.1)
[2022-09-12] MEDS: DOCUSATE SODIUM 100 MG CAP PO SCH (08:38)
[2022-09-12] MEDS: FERROUS SULFATE 325 MG TAB PO SCH (08:38)
[2022-09-12] MEDS: CYANOCOBALAMIN (B-12) 500 MCG TABLET PO SCH (08:38)
[2022-09-12] MEDS: MULTIVITAMIN TAB PO SCH (08:39)
[2022-09-12] MEDS: FINASTERIDE 5 MG TAB PO SCH (08:39)
[2022-09-12] MEDS: UREA (UREA-NA) 15 GM PACK PO SCH (08:40)
[2022-09-12] MEDS: ENOXAPARIN INJ 40 MG/0.4 ML SYR SQ SCH (09:47)
--- NOTE | 2022-09-12 11:10 | Hospitalist Progress Note ---
Date of Service September 12, 2022 Assessment & Plan (1) Complicated UTI (urinary tract infection): Plan: hx BPH as per records (hx unsuccessful outpatient tamsulosin trial as per records) Failed outpatient treatment No sepsis for now Urine CS, Cefepime Straight cath as needed Discussed placing Chen catheter - urology consulted. Started flomax and finasteride - pt reports voiding is easier Pt is now interested in placing catheter - RN notified as well. Urine cultx negative Blood cultx negat. in 48 hrs Possible proctitis, cont. abx -> may discharge on ciprofloxacin Pt follows w/ Dr. Pena ([facility] urology) as outpt Hyponatremia - secondary to illness, siadh - Sodium was 129 on admission. Urine osmolality of 503 and urine sodium of 47. - Fluid restriction 1.5 L -> 1.8L - Urea 15 g twice daily -> now stopped - Sodium 134 this AM Hyperglycemia rule out DM Check hemoglobin A1c Chronic anemia, hemoglobin at baseline Past alcohol abuse DVT prophylaxis with Lovenox subcu Full code Admission and Anticipated Discharge Date Admission Date: September 10, 2022 Subjective Patient seen in follow-up of urinary retention, possible UTI/possible prostatitis, hyponatremia Feels weak and tired due to urinary frequency. Discussed in detail again, and patient is now interested in catheter. Discussed with the nurse at the bedside, that Chen will be placed. No fever, chills, chest pain, shortness of breath, n/v Review of Systems Review of Systems: All systems reviewed & are unremarkable except as noted in Subjective Physical Exam Physical Exam: GENERAL: Comfortable, slightly anxious, no respiratory distress HEENT: [place] palpebral conjunctivae, no ptosis NECK : Supple, no tenderness CHEST : CTA, no tenderness HEART : RRR, no obvious murmurs ABDOMEN: Soft, nontender EXTREMITIES : No LE swelling/tenderness, moves extremities SKIN: Normal color, warm NEUROLOGIC : Coherent, no facial asymmetry, speech fluent, moves extremities Results & Data Results & Data Vital Signs (Past 12 Hours) Vital Signs Temp Pulse Resp BP Pulse Ox O2 Del Method 09/12/22 07:52 37.1 C 86 16 138/76 98 Room Air Laboratory Results 09/12/22 09/12/22 Range/Units 07:11 07:11 WBC 8.38 (4.8-10.8) K/ul RBC 3.70 L (4.70-6.10) M/uL Hgb 11.5 L (14.0-18.0) g/dl Hct 32.9 L (42.0-52.0) % MCV 88.9 (80.0-100.0) fL MCH 31.1 (25.0-34.0) pg MCHC 35.0 (32.0-36.0) g/dL RDW Std Deviation 45.0 (36.4-46.3) fL RDW Coeff of Loyd 13.8 (11.5-14.5) % Plt Count 224 (130-400) K/uL MPV 10.3 (9.4-12.4) fL Sodium 134 L (136-145) mmol/L Potassium 3.7 (3.5-5.1) mmol/L Chloride 100 (98-107) mmol/L Carbon Dioxide 28 (21-32) mmol/L Anion Gap 6 (3-11) BUN 20 (6-23) mg/dl Creatinine 0.56 L (0.6-1.4) mg/dl Est Cr Clr Drug Dosing 123.2 ml/min Est GFR ( Amer) 120.6 ml/min Est GFR (Non-Af Amer) 104.1 ml/min BUN/Creatinine Ratio 35.7 H (10-20) Glucose 99 (70-99(Fasting)) mg/dl Calcium 8.7 (8.6-10.3) mg/dl Phosphorus 3.0 (2.5-4.9) mg/dl Magnesium 2.0 (1.7-2.4) mg/dl Medications Administered Current Inpatient Medications Acetaminophen (Acetaminophen 325 Mg Tab) 650 mg PO Q6H PRN PRN Reason: Fever/pain Stop: 10/10/22 02:42 Last Admin: 09/11/22 06:48 Dose: 650 mg Cyanocobalamin (Cyanocobalamin (B-12) 500 Mcg Tablet) 500 mcg PO DAILY [facility] Stop: 10/10/22 08:59 Last Admin: 09/12/22 08:38 Dose: 500 mcg Docusate Sodium (Docusate Sodium 100 Mg Cap) 100 mg PO DAILY [facility] Stop: 10/10/22 08:59 Last Admin: 09/12/22 08:38 Dose: 100 mg Enoxaparin Sodium (Enoxaparin Inj 40 Mg/0.4 Ml Syr) 40 mg SQ QAM [facility] Stop: 10/10/22 08:59 Last Admin: 09/12/22 09:47 Dose: 40 mg Ferrous Sulfate (Ferrous Sulfate 325 Mg Tab) 325 mg PO DAILY [facility] Stop: 10/10/22 08:59 Last Admin: 09/12/22 08:38 Dose: 325 mg Finasteride (Finasteride 5 Mg Tab) 5 mg PO QAM [facility] Stop: 10/10/22 09:44 Last Admin: 09/12/22 08:39 Dose: 5 mg Promethazine HCl 6.25 mg/ (Sodium Chloride) 50.25 mls @ 201 mls/hr IV Q6H PRN PRN Reason: Nausea And Vomiting Stop: 10/10/22 02:42 Cefepime HCl 2,000 mg/ Syringe 20 mls @ 5 mls/min IV Q8H [facility]; Protocol Stop: 09/20/22 11:59 Last Admin: 09/12/22 05:56 Dose: 5 mls/min Lorazepam (Lorazepam 0.5 Mg Tab) 0.5 mg PO QID PRN PRN Reason: Anxiety Stop: 10/12/22 04:09 Multivitamins (Multivitamin Tab) 1 tab PO DAILY [facility] Stop: 10/10/22 08:59 Last Admin: 09/12/22 08:39 Dose: 1 tab Tamsulosin HCl (Tamsulosin Hcl 0.4 Mg Cap) 0.4 mg PO HS [facility] Stop: 10/10/22 20:59 Last Admin: 09/11/22 21:51 Dose: 0.4 mg Urea (Urea (Urea-Na) 15 Gm Pack) 15 gm PO BID [facility] Stop: 10/10/22 10:59 Last Admin: 09/12/22 08:40 Dose: 15 gm
--- NOTE | 2022-09-12 11:27 | Nephrology Progress Note ---
Date of Service September 12, 2022 Assessment & Plan Admission and Anticipated Discharge Date Admission Date: September 10, 2022 Subjective Assessment & Plan (1) Acute hyponatremia: Plan: Patient with hyponatremia due to SIADH. Sodium was 129 on admission and now 134. Urine osmolality of 503 and urine sodium of 47. raise the Fluid restriction 1.8 liter D/c urea. (2) Urinary retention due to benign prostatic hyperplasia: Plan: Patient with urinary retention due to BPH. He has been seen by urology who recommended finasteride and Flomax. Patient reporting some improvement in urination. (3) Complicated UTI (urinary tract infection): Plan: Patient with UTI on cefepime. Urine and blood cultures are pending. Subjective Seen in follow-up for hyponatremia and urinary retention. He feels better today. He is frustrated with the fluid restriction and does not like urea. na upto 134. Review of Systems Review of Systems: All other systems were reviewed and negative except as noted in HPI Physical Exam Physical Exam: General exam: Appears comfortable, no acute distress HEENT: Pupils are equal and reactive to light Neck: No JVD, neck is supple trachea is midline Respiratory system: Clear breath sounds bilaterally. Gastrointestinal: Abdomen is soft, non distended, non tender, bowel sounds are present CVS: Regular rate and rhythm. No murmurs, rubs or gallops Musculoskeletal: No joint or muscle tenderness Extremities: Non tender, no edema, peripheral pulses are present Neuro: Oriented, no tremors, no focal neurological deficits Skin: No rashes Results & Data Vital Signs (Past 12 Hours) Vital Signs Temp Pulse Resp BP Pulse Ox O2 Del Method 09/12/22 07:52 37.1 C 86 16 138/76 98 Room Air
[2022-09-12] MEDS: DOCUSATE SODIUM/SENNA 50/8.6MG TAB PO SCH (20:02)
[2022-09-12] MEDS: TAMSULOSIN HCL 0.4 MG CAP PO SCH (20:02)
[2022-09-12] MEDS: POLYETHYLENE (MIRALAX) 17 GM PACK PO PRN (20:02)
[2022-09-12] MEDS: ACETAMINOPHEN 325 MG TAB PO PRN (23:01)
[2022-09-12] MEDS: LORazepam 0.5 MG TAB PO PRN (23:01)
[2022-09-13] MEDS: CEFEPIME 2,000 MG in SYRINGE 0 ML IV SCH ×2 (05:43→14:43)
[2022-09-13 07:49] LABS: Hematocrit (blood only) 36.7 % (42.0-52.0); Hemoglobin 12.7 g/dl (14.0-18.0); Mean Corpuscular Hemoglobin 30.7 pg (25.0-34.0); Mean Corpuscular Hgb Conc 34.6 g/dL (32.0-36.0); Mean Corpuscular Volume 88.6 fL (80.0-100.0); Mean Platelet Volume 9.7 fL (9.4-12.4); Platelet Count 284 K/uL (130-400); RDW Coefficient of Variation 13.9 % (11.5-14.5); RDW Standard Deviation 45.1 fL (36.4-46.3); Red Blood Count 4.14 M/uL (4.70-6.10); White Blood Count 12.14 K/ul (4.8-10.8)
[2022-09-13] MEDS: FINASTERIDE 5 MG TAB PO SCH (08:00)
[2022-09-13] MEDS: CYANOCOBALAMIN (B-12) 500 MCG TABLET PO SCH (08:00)
[2022-09-13] MEDS: MULTIVITAMIN TAB PO SCH (08:00)
[2022-09-13] MEDS: FERROUS SULFATE 325 MG TAB PO SCH (08:00)
[2022-09-13] MEDS: ENOXAPARIN INJ 40 MG/0.4 ML SYR SQ SCH (08:01)
[2022-09-13] MEDS: POLYETHYLENE (MIRALAX) 17 GM PACK PO PRN (08:03)
[2022-09-13] MEDS: ACETAMINOPHEN 325 MG TAB PO PRN (08:03)
[2022-09-13] MEDS: DOCUSATE SODIUM/SENNA 50/8.6MG TAB PO SCH (08:03)
[2022-09-13 08:06] LABS: Potassium 3.8 mmol/L (3.5-5.1)
[2022-09-13 08:12] LABS: BUN Creatinine Ratio 20.7 (10-20); Est GFR (African American) 118.9 ml/min; Est GFR (Non-African American) 102.6 ml/min; Phosphorus 2.7 mg/dl (2.5-4.9)
--- NOTE | 2022-09-13 10:25 | Nephrology Progress Note ---
Date of Service September 13, 2022 Assessment & Plan Admission and Anticipated Discharge Date Admission Date: September 10, 2022 Subjective Assessment & Plan (1) Acute hyponatremia: Plan: Patient with hyponatremia due to SIADH. Sodium was 129 on admission and now 134. Urine osmolality of 503 and urine sodium of 47. Continue Fluid restriction 1.8 liter No salt tab or urea at Discharge. As long as Na more than 128 we should accept that as outpt. very unlikely he will follow fluid limit after discharge so na will drop somewhat. f/u nephrology if patient desires only (2) Urinary retention due to benign prostatic hyperplasia: Plan: Patient with urinary retention due to BPH. He has been seen by urology who cortney mmended finasteride and Flomax. Patient reporting some improvement in urination. (3) Complicated UTI (urinary tract infection): Plan: Patient with UTI on cefepime. Urine and blood cultures are pending. Subjective Seen in follow-up for hyponatremia and urinary retention. He feels better today. na 134 and 133 Review of Systems Review of Systems: All other systems were reviewed and negative except as noted in HPI Physical Exam Physical Exam: General exam: Appears comfortable, no acute distress HEENT: Pupils are equal and reactive to light Neck: No JVD, neck is supple trachea is midline Respiratory system: Clear breath sounds bilaterally. Gastrointestinal: Abdomen is soft, non distended, non tender, bowel sounds are present CVS: Regular rate and rhythm. No murmurs, rubs or gallops Musculoskeletal: No joint or muscle tenderness Extremities: Non tender, no edema, peripheral pulses are present Neuro: Oriented, no tremors, no focal neurological deficits Skin: No rashes Results & Data Vital Signs (Past 12 Hours) Vital Signs Temp Pulse Resp BP Pulse Ox O2 Del Method 09/13/22 07:53 36.9 C 88 14 146/75 H 98 Room Air
[2022-09-13] MEDS: CIPROFLOXACIN 500 MG TAB PO SCH (20:14)
[2022-09-13] MEDS: TAMSULOSIN HCL 0.4 MG CAP PO SCH (20:14)
--- NOTE | 2022-09-13 21:56 | Hospitalist Progress Note ---
Date of Service September 13, 2022 Assessment & Plan (1) Complicated UTI (urinary tract infection): (2) Benign localized prostatic hyperplasia with lower urinary tract symptoms (LUTS): (3) Urinary retention due to benign prostatic hyperplasia: (4) Acute hyponatremia: Plan Possible prostatitis- blood and urine culture remains negative. Patient was treated with IV cefepime and changed to ciprofloxacin per urology given concern for possible prostatitis-total duration of 28 days per urology. QTc normal. He will follow-up with his urologist Dr. Pena as outpatient BPH with urinary retention-continue Flomax, finasteride, Chen catheter. Outpatient follow-up with urology for voiding trial as well as discussion for BPH surgery. Hyponatremia secondary SIADH-hyponatremia resolved status post urea and fluid restriction. Seen by nephrology and recommendations noted. Continue fluid restrictions. No more need for urea. - Sodium 129 on admission->139. Urine osmolality of 503 and urine sodium of 47. DVT prophylaxis-subcu Lovenox Disposition-medically stable. Anticipate discharge in 1 to 2 days-patient requesting home services and CM following for the same. Admission and Anticipated Discharge Date Admission Date: September 10, 2022 Subjective Patient was seen and examined at bedside. He feels much better after placement of Chen catheter. Discussed about discharge home however he had multiple concerns given he lives alone in a multilevel apartment and does not have any family around. He does not feel ready to go home given the amount of medical issues he underwent this admission. He wanted to speak to family independence case manager for home assistance. No fever, chills, chest pain or shortness, nausea or vomiting Review of Systems Review of Systems: All systems reviewed & are unremarkable except as noted in Subjective Physical Exam Physical Exam: General: Walking independently in the room, not in distress, on room air HEENT: EOMI, CRISS, MMM Chest: Clear breath sounds bilaterally, no wheezes or crackles CVS: Regular rate and rhythm, normal heart sounds, no murmur Abdomen: Soft, non tender, not distended, normal bowel sounds Neuro: Awake, alert, oriented, conversing well, non focal Extremities: No cyanosis, clubbing or edema Chen catheter with clear urine Results & Data Results & Data Vital Signs (Past 12 Hours) Vital Signs Temp Pulse Resp BP BP Pulse Ox O2 Del Method 09/13/22 21:16 37.5 C 91 H 18 159/80 H 100 Room Air 09/13/22 15:44 37.4 C 91 H 18 137/84 100 Room Air Laboratory Results Short CBC 09/13/22 Range/Units 07:18 WBC 12.14 H (4.8-10.8) K/ul Hgb 12.7 L (14.0-18.0) g/dl Hct 36.7 L (42.0-52.0) % Plt Count 284 (130-400) K/uL BMP 09/13/22 07:18 Sodium 133 L Potassium 3.8 Chloride 98 Carbon Dioxide 28 BUN 12 Creatinine 0.58 L Glucose 103 H Calcium 9.0 Medications Administered Current Inpatient Medications Acetaminophen (Acetaminophen 325 Mg Tab) 650 mg PO Q6H PRN PRN Reason: Fever/pain Stop: 10/10/22 02:42 Last Admin: 09/13/22 08:03 Dose: 650 mg Ciprofloxacin (Ciprofloxacin 500 Mg Tab) 500 mg PO BID [facility]; Protocol Stop: 10/08/22 08:59 Last Admin: 09/13/22 20:14 Dose: 500 mg Cyanocobalamin (Cyanocobalamin (B-12) 500 Mcg Tablet) 500 mcg PO DAILY [facility] Stop: 10/10/22 08:59 Last Admin: 09/13/22 08:00 Dose: 500 mcg Enoxaparin Sodium (Enoxaparin Inj 40 Mg/0.4 Ml Syr) 40 mg SQ QAM [facility] Stop: 10/10/22 08:59 Last Admin: 09/13/22 08:01 Dose: 40 mg Ferrous Sulfate (Ferrous Sulfate 325 Mg Tab) 325 mg PO DAILY [facility] Stop: 10/10/22 08:59 Last Admin: 09/13/22 08:00 Dose: 325 mg Finasteride (Finasteride 5 Mg Tab) 5 mg PO QAM [facility] Stop: 10/10/22 09:44 Last Admin: 09/13/22 08:00 Dose: 5 mg Promethazine HCl 6.25 mg/ (Sodium Chloride) 50.25 mls @ 201 mls/hr IV Q6H PRN PRN Reason: Nausea And Vomiting Stop: 10/10/22 02:42 Lorazepam (Lorazepam 0.5 Mg Tab) 0.5 mg PO QID PRN PRN Reason: Anxiety Stop: 10/12/22 04:09 Last Admin: 09/12/22 23:01 Dose: 0.5 mg Multivitamins (Multivitamin Tab) 1 tab PO DAILY [facility] Stop: 10/10/22 08:59 Last Admin: 09/13/22 08:00 Dose: 1 tab Polyethylene Glycol (Polyethylene (Miralax) 17 Gm Pack) 17 gm PO DAILY PRN PRN Reason: Constipation Stop: 10/12/22 19:55 Last Admin: 09/13/22 08:03 Dose: 17 gm Senna/Docusate Sodium (Docusate Sodium/Senna 50/8.6mg Tab) 1 tab PO QAM [facility] Stop: 10/12/22 19:59 Last Admin: 09/13/22 08:03 Dose: 1 tab Tamsulosin HCl (Tamsulosin Hcl 0.4 Mg Cap) 0.4 mg PO HS [facility] Stop: 10/10/22 20:59 Last Admin: 09/13/22 20:14 Dose: 0.4 mg
[2022-09-13] MEDS: LORazepam 0.5 MG TAB PO PRN (22:33)
[2022-09-14] MEDS: ENOXAPARIN INJ 40 MG/0.4 ML SYR SQ SCH (07:53)
[2022-09-14] MEDS: FERROUS SULFATE 325 MG TAB PO SCH (07:54)
[2022-09-14] MEDS: MULTIVITAMIN TAB PO SCH (07:54)
[2022-09-14] MEDS: CYANOCOBALAMIN (B-12) 500 MCG TABLET PO SCH (07:54)
[2022-09-14] MEDS: DOCUSATE SODIUM/SENNA 50/8.6MG TAB PO SCH (07:54)
[2022-09-14] MEDS: FINASTERIDE 5 MG TAB PO SCH (07:54)
[2022-09-14] MEDS: CIPROFLOXACIN 500 MG TAB PO SCH (07:54)
--- NOTE | 2022-09-14 13:05 | Discharge Summary ---
Discharge Summary Date of Service September 14, 2022 Notes For Next Care Provider Urinary retention 2/2 BPH, possible prostatitis. Christianson in place, uro follow up, abx as below for prostatitis, 1.8 L fluid restriction for hypoNa 2/2 SIADH Medication Changes From Visit Continue Cipro BID to complete 28 day course, continue flomax and finasteride Admission HPI Per Admitting Provider History obtained from patient and records. Medical history significant for BPH, history of PSA elevation, chronic anemia (baseline hemoglobin 11-12 ), past alcohol abuse. Patient not feeling well the last 4 days. Low-grade temperature and pulse elevation at home. Denies chest pain, shortness of breath, cough symptoms. Trouble concentrating. No recollection of recent tick bites. Patient completed COVID-19 vaccination. Patient seen at urgent care center. Outpatient Lyme screen noted to be negative. UA showed WBC. Patient later noted dysuria symptoms and urinary retention. Urologist prescribed Macrodantin course. Minimal improvement despite compliance with medications. Poor appetite, nausea symptoms without abdominal pain. Patient seen at weekend clinic yesterday. Macrodantin switched to ciprofloxacin for possible prostatitis. Patient consulted ER for worsening symptoms despite 1 dose of Cipro at home. Bladder residual noted to be greater than 500 cc at the ER. Medical History as above Surgical History : Laparoscopic hernia repair, laser trabeculoplasty, nasal bone fracture reduction, pilonidal cyst removal Family History : Breast cancer, colon cancer, heart disease, Parkinson's disease, stroke Personal/Social history : Non-smoker, past alcohol abuse, retired theater professional Admission Exam Per Admitting Provider GENERAL: Comfortable, slightly anxious, no respiratory distress SKIN: Normal color, warm HEENT: [place] palpebral conjunctivae, no ptosis, dry buccal mucosa NECK : Supple, no tenderness CHEST : CTA, no tenderness HEART : RRR, no obvious murmurs ABDOMEN: Some distention, nontender EXTREMITIES : No LE swelling/tenderness, no other conspicuous deformities noted NEUROLOGIC : Coherent, no facial asymmetry, no other gross focality Principal Dx & Hospital Course #1 = Principal Diagnosis (1) Complicated UTI (urinary tract infection): (2) Benign localized prostatic hyperplasia with lower urinary tract symptoms (LUTS): (3) Urinary retention due to benign prostatic hyperplasia: (4) Acute hyponatremia: Plan This is a 71yo M with PMH of BPH, history of PSA elevation, chronic anemia (baseline hemoglobin 11-12 ), past alcohol abuse who was admitted for complicated UTI and urinary retention 2/2 BPH. Urology evaluated for possible prostatitis although blood and urine cultures remain negative. Patient was treated with IV cefepime and changed to ciprofloxacin per urology for a total duration of 28 days. QTc normal. Following-up with urologist Dr. Pena as outpatient tomorrow. Started on flomax and finasteride for BPH. Christianson catheter in place. Will have voiding trial with uro as outpatient as well as discussion for BPH surgery. During admission, noted to have hyponatremia secondary SIADH that resolved status post urea and fluid restriction. Seen by nephrology with recommendation to continue 1.8 L fluid restriction. Acceptable sodium of 128 or above as an outpatient. Follow-up with nephrology as desired. Patient comfortable and hemodynamically stable at time of discharge home. Discharge Exam Gen: WD/WN, NAD, standing at bedside, A&Ox3 HEENT: Normocephalic, atraumatic, conjunctivae moist, sclerae anicteric, mucous membranes moist Lung: Clear to Auscultation bilaterally, no wheezes/rales/rhonchi Heart: Regular rate, regular rhythm, no murmurs, rubs, or gallops Abdomen: Soft, NT, ND +BS x 4 : Christianson Extremities: no edema Skin: Warm, no rash Updated Medication List Medication Instructions Recorded Confirmed Type cholecalciferol (vitamin D3) 25 0 mcg PO DAILY 09/10/22 09/10/22 History mcg (1,000 unit) capsule (Vitamin D3) cyanocobalamin (vitamin B-12) 500 0 mcg PO DAILY 09/10/22 09/10/22 History mcg tablet (Vitamin B-12) docusate sodium 100 mg capsule 100 mg PO DAILY 09/10/22 09/10/22 History (Colace) doxycycline hyclate 50 mg capsule 50 mg PO DAILY PRN FLARE UPS 09/10/22 09/10/22 History ferrous sulfate 325 mg (65 mg 325 mg PO DAILY 09/10/22 09/10/22 History iron) tablet (iron) multivitamin 1 tab PO DAILY 09/10/22 09/10/22 History Lactobacillus acidophilus 10 100 mmu cells PO DAILY #20 caps 09/14/22 Rx billion cell capsule (Probiotic) ciprofloxacin HCl 500 mg tablet 500 mg PO BID #48 tabs 09/14/22 Rx finasteride 5 mg tablet (Proscar) 5 mg PO QAM #30 tabs 09/14/22 Rx tamsulosin 0.4 mg capsule 0.4 mg PO HS #30 caps 09/14/22 Rx Hospital Stay Data Consultations 09/10/22 01:28 ED Decision to Admit Stat 09/10/22 02:58 Consult Urology Routine 09/10/22 08:39 Consult Nephrology Routine Diagnostic Imagining Performed 09/09/22 23:17 CT abd pelvis wo con Stat Pending Results Patient Have Any Pending Studies at Discharge: No Discharge Instructions Given to Patient (Per Discharging Provider) MEDICATION CHANGES: Ciprofloxacin (antibiotic) by mouth twice daily x 24 days forcomplicated UTI. Probiotic dailyx 30 days for GI health. Tamsulosin by mouth every night for urinary symptoms. Finasteride by mouth every morning for urinary symptoms. SUMMARY OF TEST RESULTS: You were admitted to hospital for prostatitis and enlarged prostate with urinary retention. Continue antibiotic and new urology medications as directed above Outpatient follow-up with urology for voiding trial as well as discussion for BPH surgery Keep christianson catheter in place for now Seen by kidney doctor for low sodium - please continue 1.8 L fluid restriction. PENDING TEST RESULTS: None RECOMMENDATIONS FOR FOLLOW-UP: Follow up with PCP as scheduled. Complete antibiotic in its entirety. Continue medication regimen as scheduled aside from changes noted above. Follow up with urology in clinic as scheduled. Continue 1.8 L fluid restriction. 1 week repeat labwork (BMP) for PCP to monitor sodium. OTHER INSTRUCTIONS: Seek medical attention if you have: * temperature above 101 * chest pain or trouble breathing * abdominal pain, nausea, vomiting * diarrhea, dark stools or bloody stools * any unanswered questions or concerns Call 911 if symptoms are severe. Please take good care of yourself. Call if you have any questions or problems. You can reach a [facility] hospitalist on duty at [facility] 24 hours a day by calling [phone]. Total Time Total Time Spent Total Time Spent (In Minutes): 50 Supervising Physician Co-Signing Physician Notes Patient was seen and examined independently at bedside. Chart reviewed. Case discussed with Amy Chand PA-C and agree with the documentation above. In summary, this is a 71 year old male with BPH with LUTS/urinary retention. He feels significantly better after christianson insertion on which he will be discharged. He will continue on flomax and proscar. He will also continue on cipro per urology due to concern for prostatitis. He has appt with urology tomorrow. Also had hyponatremia due to SIADH which resolved with urea and fluid restriction and sodium has remained stable. He denies any needs. He is comfortable and stable for discharge home.
== END 2022-09-14 16:02 | disposition home health service (06) | DRG 728 ==
LOC: ED 22:47 → SUATTDRO 09-10 02:42 → INTOOBSV 09-10 02:42 → 3N 09-10 02:42